=== PATIENT | male | born 1970 | race Two or more races ===

== ENCOUNTER 2023-07-02 06:44 | Day surgery (SDC) | payer OTHER, SELFPAY ==
[2023-07-02 07:13] VITALS: BMI 30.3
--- NOTE | 2023-07-02 07:18 | PM.GSPRC ---
Date of procedure: 07/02/23 Indications for Procedure: weight loss melena Pre-op diagnosis: weight loss/melena Post-op diagnosis: other (normal colon normal colon; rule out Bingham's esophagus up her esophagus 15 cm from mouth) Procedure: EGD with biopsy antrum and upper esophagus Colonoscopy Findings: normal colon Rule out Bingham's esophagus upper esophagus Anesthesia: MAC Surgeon: Dagoberto Foster Procedure Summary: PROCEDURE: The patient was taken to the Endoscopy Suite, placed in the left lateral recumbent position, given IV sedation as above. ellipse EGD scope was advanced under direct visualization into the posterior pharynx esophagus stomach through the pylorus to the 1st 2nd 3rd portions of the duodenum which were completely normal. There were no ulcers polyps or tumors seen. The scope was withdrawn to the stomach retroflexed on itself looking the GE junction which was normal. No polyps tumors or ulcers were found. Random biopsies of the antrum were taken. Hemostasis was maintained. The scope was withdrawn to the distal esophagus to the GE junction which was normal and the rest the esophagus was normal up until the upper esophagus about 15 cm from the mouth there was an area of denuding of the mucosa which was suspicious for Bingham's esophagus therefore two biopsies were taken and hemostasis was maintained. No other abnormalities were seen. A rectal digital exam was performed. prostate was smooth nonenlarged without nodules. No rectal masses were appreciated. The sphincter tone was found to be normal. No rectal masses were appreciated. The Olympus video colonoscope was advanced under direct visualization to the rectum, sigmoid colon, descending colon, transverse colon and ascending colon to the ileocecal valve. Appendiceal lumen was visualized.The underside of the valve was seen. The scope was slowly withdrawn with air being desufflated as it was withdrawn. No gross tumors, polyps or diverticula were seen. The patient tolerated the procedure well and went to the Recovery Area in satisfactory condition. I recommend repeat colonoscopy for screening purposes in ten years unless there are problems. He may follow-up when necessary with me. We will call with results of his biopsies. Estimated blood loss (mL): 0 Specimens: upper esophageal biopsy and antral biopsies Complications: No Pathology: none sent (esophageal biopsies) Condition: stable Disposition: PACU
[2023-07-02] MEDS: LACTATED RINGER'S SOLUTION 1,000 ML 50 ML IV (07:21)
[2023-07-02 08:59] VITALS: BP 144/92; PULSE 60; RESP 16; TEMP 36.1
[2023-07-02 09:13] VITALS: BP 137/75; PULSE 65; RESP 16; O2SAT 97
[2023-07-02 09:29] VITALS: BP 148/78; PULSE 72; RESP 16; O2SAT 98
[2023-07-03 16:13] LABS: H Pylori Tissue, Urease Positive
== END 2023-07-02 09:29 | disposition home or self-care (01) ==
PROVIDERS: PCP Nurse Practitioner Family; Visit Provider Surgery
PROC: (CPT 43239; principal; 2023-07-02 08:10)
DX: K29.50 Unspecified chronic gastritis without bleeding (principal); B96.81 Helicobacter pylori [H. pylori] as the cause of diseases classified elsewhere; K92.1 Melena; R63.4 Abnormal weight loss; F12.90 Cannabis use, unspecified, uncomplicated; F17.210 Nicotine dependence, cigarettes, uncomplicated; Z79.899 Other long term (current) drug therapy; K21.9 Gastro-esophageal reflux disease without esophagitis; R19.4 Change in bowel habit; Z68.27 Body mass index [BMI] 27.0-27.9, adult
CPT/HCPCS: 43239; 45378; 87077; 88305; 88313; 88342; 99999; J2704